=== PATIENT | male | born 2005 | race Caucasian/White ===

== ENCOUNTER 2023-11-22 09:46 | Emergency (ER) | payer SELFPAY ==
[~2023-11-22] VITALS: Ht 170.2 cm; Wt 65.8 kg
[2023-11-22 09:52] VITALS: BP 118/71; TEMP 98.2; O2SAT 97
[2023-11-22] MEDS: ACETAMINOPHEN 325 MG TABLET PO ONE (10:00)
[2023-11-22] MEDS ORDERED: ACETAMINOPHEN 325 MG TABLET ONE (10:01)
[2023-11-22] MEDS ORDERED: BENZ1LOZ58 PO (12:13)
== END 2023-11-22 12:26 | disposition home or self-care (01) ==
LOC: ER 09:46
DX: U07.1 COVID-19 (principal)
CPT/HCPCS: 86403-TC; 87070-TC